=== PATIENT | female | born 1945 | race Caucasian/White ===

== ENCOUNTER → 2018-02-19 | Outpatient (CLI) | payer MEDICARE, OTHER ==
[~2018-02-19] MED LIST: ALEVE PM CAPLE1 EACH PO; CYANOCOBAL-LEV1 EACH PO; DOXE10 PO; ESOM20 PO; LEVSOD50 PO; PROBIOTIC1 EAC1 PO; VICODIN ES 7.51 EACH PO; VITAMIN D-32000 UNIT PO
== END | disposition home or self-care (01) ==
LOC: LAB 19:00 → LAB SHORT 19:00 → LAB FUT 02-19 11:55 → EDSTATUS 02-19 11:55
DX: R05 Cough (principal)
CPT/HCPCS: 87070; 87077; 87185; 87205

== ENCOUNTER 2018-11-26 07:30 | Day surgery (SDC) | payer MEDICARE, OTHER ==
[~2018-11-26] VITALS: Ht 160 cm; Wt 65.5 kg
== END 2018-11-26 10:26 | disposition home or self-care (01) ==
LOC: ORSCSDS 07:30
PROVIDERS: Internal Medicine Gastroenterology
PROC: 0DBH8ZX Excision of Cecum, Via Natural or Artificial Opening Endoscopic, Diagnostic (ICD-10-PCS; principal; 2018-11-26 09:00)
PROC: 3E0H8GC Introduction of Other Therapeutic Substance into Lower GI, Via Natural or Artificial Opening Endoscopic (ICD-10-PCS; principal; 2018-11-26 09:00)
PROC: 0DBK8ZX Excision of Ascending Colon, Via Natural or Artificial Opening Endoscopic, Diagnostic (ICD-10-PCS; principal; 2018-11-26 09:00)
DX: K57.30 Diverticulosis of large intestine without perforation or abscess without bleeding (principal); D12.2 Benign neoplasm of ascending colon; D12.0 Benign neoplasm of cecum; K21.9 Gastro-esophageal reflux disease without esophagitis; Z80.0 Family history of malignant neoplasm of digestive organs; Z86.010 Personal history of colon polyps; Z79.899 Other long term (current) drug therapy; Z87.891 Personal history of nicotine dependence; Z85.3 Personal history of malignant neoplasm of breast; Z90.12 Acquired absence of left breast and nipple
CPT/HCPCS: 88305; J0330; J1980; J2405; J7120

== ENCOUNTER 2019-11-02 12:37 | Day surgery (SDC) | payer MEDICARE, OTHER ==
[~2019-11-02] VITALS: Ht 160 cm; Wt 66.0 kg
[2019-11-02] MEDS ORDERED: ADVIL100 MG (13:43)
== END 2019-11-02 15:42 | disposition home or self-care (01) ==
LOC: ORSCSDS 12:37
PROVIDERS: Internal Medicine Gastroenterology
PROC: 0DBK8ZX Excision of Ascending Colon, Via Natural or Artificial Opening Endoscopic, Diagnostic (ICD-10-PCS; principal; 2019-11-02 14:15)
DX: Z86.010 Personal history of colon polyps (principal); D12.2 Benign neoplasm of ascending colon; K57.30 Diverticulosis of large intestine without perforation or abscess without bleeding; K64.8 Other hemorrhoids; Z80.0 Family history of malignant neoplasm of digestive organs; E03.9 Hypothyroidism, unspecified; E78.5 Hyperlipidemia, unspecified; Z87.891 Personal history of nicotine dependence; Z79.899 Other long term (current) drug therapy
CPT/HCPCS: 88305; J2704; J7120

== ENCOUNTER 2023-09-09 07:28 | Day surgery (SDC) | payer MEDICARE, OTHER ==
[2023-09-09] VITALS (12 sets, daily range): BP systolic 149–171; BP diastolic 71–93
[~2023-09-09] VITALS: Ht 160 cm; Wt 55.8 kg
[~2023-09-09 07:28] MED LIST changes: +ADVIL100 MG
--- NOTE | 2023-09-09 09:55 | NUR ---
Ambulatory in Day Surgery WITH STEADY GAIT. Surgical site prepped with 2% Chlorhexidine cloth wipe. History, Chart, Medications and Allergies reviewed before start of procedure. Lungs clear T/O to Auscultation. Patient confirms NPO status and agrees with scheduled surgery. Pre-Op teaching done. Pt verbalizes understanding. Patient States Post-Procedure ride home has been arranged WITH DAUGHTER.
[2023-09-09 10:03] LABS: Bun/Creatinine Ratio 23.4 (12.0-20.0); Calcium, Blood 9.2 mg/dL (8.5-10.1); Creatinine, Blood 0.81 mg/dL (0.40-1.00); Potassium, Blood 4.1 mmol/L (3.5-5.5)
--- NOTE | 2023-09-09 14:00 | NUR ---
MEDICATED FOR PAIN/NAUSEA
--- NOTE | 2023-09-09 14:20 | NUR ---
MINOR BLEEDING AROUND ALEX SITE, SATURATED AROUND LOWER SIDE OF DRESSING. REMOVED DRESSING, STITCH APPEARS INTACT. NEW TEGADERM CHG DRESSING APPLIED.
--- NOTE | 2023-09-09 14:42 | NUR ---
Discharge instructions reviewed with patient. Patient verbalizes understanding. Copy given to patient to take home. Electronic prescription called into [facility]. Xofen sites C/D/I, replaced tegderm CHG dressing on ALEX site. Sent extra supplies home with pt for another dressing change if needed. Patient States Post-Procedure ride home has been arranged. Discharged via wheelchair to private car for ride home.
== END 2023-09-09 14:40 | disposition home or self-care (01) ==
LOC: ORSCMMR 07:28 → ORD 09:45 → ORSCMMR 14:40
PROVIDERS: Surgery
PROC: 0JBF0ZX Excision of Left Upper Arm Subcutaneous Tissue and Fascia, Open Approach, Diagnostic (ICD-10-PCS; principal; 2023-09-09 09:45)
PROC: 07B50ZX Excision of Right Axillary Lymphatic, Open Approach, Diagnostic (ICD-10-PCS; principal; 2023-09-09 09:45)
PROC: 0HTT0ZZ Resection of Right Breast, Open Approach (ICD-10-PCS; principal; 2023-09-09 09:45)
DX: C50.211 Malignant neoplasm of upper-inner quadrant of right female breast (principal); Z17.0 Estrogen receptor positive status [ER+]; D36.0 Benign neoplasm of lymph nodes; D17.22 Benign lipomatous neoplasm of skin and subcutaneous tissue of left arm; I10 Essential (primary) hypertension; E03.9 Hypothyroidism, unspecified; Z79.899 Other long term (current) drug therapy; Z85.3 Personal history of malignant neoplasm of breast
CPT/HCPCS: 38792; 80048; 88304; 88307; 88342; 93005; 93010; A9270; A9520; J0690; J1100; J2405; J2704; J3010; J7120; Q9968

== ENCOUNTER → 2023-09-15 | Outpatient (CLI) | payer MEDICARE, OTHER | LOC: LAB 13:08 → LAB SHORT 13:08 | DX: N39.0 Urinary tract infection, site not specified (principal) | CPT/HCPCS: 87086 ==